=== PATIENT | female | born 1950 | race Caucasian/White ===

== ENCOUNTER 2023-08-23 20:35 | Emergency (ER) | payer OTHER ==
[2023-08-23 20:57] VITALS: TEMP 98.1; BMI 37.0
[2023-08-23] MEDS ORDERED: amLODIPine BESYLATE 5 MG TABLET (FP) PO ONE (23:17)
[2023-08-23] MEDS ORDERED: amLODIPine BESYLATE 5 MG TABLET (FP) ONE (23:18)
[2023-08-24 00:41] LABS: HEMOGLOBIN 14.4 GM/dL (10.7-15.3)
[2023-08-24] MEDS ORDERED: KETOROLAC TROMETHAMINE 30 MG/1 ML VIAL IVPUSH ONE (00:52)
[2023-08-24] MEDS ORDERED: KETOROLAC TROMETHAMINE 30 MG/1 ML VIAL ONE (00:53)
[2023-08-24 00:57] LABS: POTASSIUM 3.8 mmol/L (3.5-5.1)
[2023-08-24 00:58] LABS: CALCIUM 8.9 mg/dL (8.5-10.1)
[2023-08-24 00:59] LABS: ALBUMIN 3.5 g/dl (3.4-5.0); BLOOD UREA NITROGEN 7.9 mg/dL (7-18)
[2023-08-24 01:02] LABS: CREATININE 0.8 mg/dL (0.55-1.3)
[2023-08-24 01:04] LABS: BILIRUBIN,TOTAL 0.6 mg/dL (0.2-1); TOT PROT 7.2 g/dl (6.4-8.2)
[2023-08-24 01:32] LABS: BASO % 0.4 % (0-2.0); EOS % 0.5 % (0-4.5); LYMPH % 28.2 % (8-40); MONO % 4.4 % (3.8-10.2); NEUT % 66.5 % (42.8-82.8)
[2023-08-24 01:34] LABS: HEMATOCRIT 42.8 % (32.4-45.2); MCH 27.3 pg (25.7-33.7); MCHC 33.6 g/dl (32.0-36.0); RBC 5.27 M/mm3 (3.60-5.2); WHITE BLOOD COUNT 17.2 K/mm3 (4.0-10.0)
[2023-08-24 01:35] LABS: MEAN CELL VOLUME 81.3 fl (80-96); MEAN PLT VOLUME 8.1 fl (7.5-11.1); PLATELET COUNT 377 10^3/uL (134-434); RDW 12.9 % (11.6-15.6)
[2023-08-24 03:04] LABS: PH,URINE 5.5 (5.0-8.0); URINE APPEARANCE CLEAR; URINE BILIRUBIN NEGATIVE (NEGATIVE); URINE COLOR YELLOW; URINE GLUCOSE (UA) NEGATIVE (NEGATIVE); URINE KETONE NEGATIVE (NEGATIVE); URINE LEUK ESTERASE 1+ (NEGATIVE); URINE NITRITE NEGATIVE (NEGATIVE); URINE PROTEIN NEGATIVE (NEGATIVE)
[2023-08-24 03:11] LABS: EPI CELLS 14.7 /uL (0-25.1); HYALINE CASTS 0.25 /uL (0-3.1); URINE BACTERIA 299.5 /uL (0-1359); URINE RBC 6.9 /uL (0-23.9); URINE WBC 34.6 /uL (0-25.8)
[2023-08-24 03:52] VITALS: BP 174/65; PULSE 95; RESP 18
== END 2023-08-24 03:56 | disposition home or self-care (01) ==
LOC: FER 20:35
PROC: 3E0333Z Introduction of Anti-inflammatory into Peripheral Vein, Percutaneous Approach (ICD-10-PCS; principal; 2023-08-24)
DX: N30.00 Acute cystitis without hematuria (principal); D72.829 Elevated white blood cell count, unspecified; R07.89 Other chest pain; R21 Rash and other nonspecific skin eruption; R10.811 Right upper quadrant abdominal tenderness
CPT/HCPCS: 36415; 71045-TC-FY; 76705-TC; 80053; 81003; 84484; 85025; 87086; 93005; 96374; 99285-25